=== PATIENT | male | born 1955 | race Two or more races ===

== ENCOUNTER → 2016-06-02 | Outpatient (CLI) | payer OTHER ==
[2016-06-02 10:27] LABS: ALANINE AMINOTRANSFERASE 121 U/L (21-72); ALBUMIN 4.7 g/dL (3.5-5.0); ALKALINE PHOSPHATASE 150 U/L (38-126); ASPARTATE AMINO TRANSFERASE 55 U/L (17-59); Direct HDL 44 mg/dL (>40); TOTAL PROTEIN 6.7 g/dL (6.3-8.2); TRIGLYCERIDES 183 mg/dL (<150)
[2016-06-02 10:37] LABS: DIRECT LDL 110 mg/dL (<100)
[2016-06-02 10:42] LABS: VLDL CHOLESTEROL 36.6 mg/dL (10-31)
== END ==
LOC: OD 08:36
PROVIDERS: ATTEND Internal Medicine Cardiovascular Disease
DX: R94.5 Abnormal results of liver function studies (principal)
CPT/HCPCS: 36415; 80061; 80076

== ENCOUNTER → 2016-07-29 | Outpatient (CLI) | payer OTHER ==
[2016-07-29 09:09] LABS: ALANINE AMINOTRANSFERASE 118 U/L (21-72); ALBUMIN 4.2 g/dL (3.5-5.0); ALKALINE PHOSPHATASE 130 U/L (38-126); ASPARTATE AMINO TRANSFERASE 60 U/L (17-59); BILIRUBIN,TOTAL 0.7 mg/dL (0.2-1.3); CHOLESTEROL 179.59 mg/dL (0-200); Direct HDL 43 mg/dL (>40); TOTAL PROTEIN 6.7 g/dL (6.3-8.2); TRIGLYCERIDES 207 mg/dL (<150)
[2016-07-29 09:20] LABS: DIRECT LDL 101 mg/dL (<100)
[2016-07-29 09:26] LABS: VLDL CHOLESTEROL 41.4 mg/dL (10-31)
== END ==
LOC: OD 07:34
PROVIDERS: ATTEND Internal Medicine Cardiovascular Disease
DX: E78.2 Mixed hyperlipidemia (principal); R94.5 Abnormal results of liver function studies
CPT/HCPCS: 36415; 80061; 80076; 82977

== ENCOUNTER → 2016-11-24 | Outpatient (CLI) | payer OTHER ==
[2016-11-24 12:18] LABS: ALANINE AMINOTRANSFERASE 100 U/L (21-72); ALBUMIN 4.1 g/dL (3.5-5.0); ALKALINE PHOSPHATASE 139 U/L (38-126); ASPARTATE AMINO TRANSFERASE 60 U/L (17-59); BILIRUBIN,DIRECT 0.3 mg/dL (0.0-0.4); BILIRUBIN,TOTAL 0.9 mg/dL (0.2-1.3); CHOLESTEROL 218.84 mg/dL (0-200); Direct HDL 44 mg/dL (>40); TRIGLYCERIDES 221 mg/dL (<150)
[2016-11-24 12:29] LABS: DIRECT LDL 142 mg/dL (<100)
[2016-11-24 12:36] LABS: VLDL CHOLESTEROL 44.2 mg/dL (10-31)
== END ==
LOC: OD 11:19
PROVIDERS: ATTEND Internal Medicine Cardiovascular Disease
DX: E78.2 Mixed hyperlipidemia (principal); R94.5 Abnormal results of liver function studies
CPT/HCPCS: 36415; 80061; 80076; 82977

== ENCOUNTER → 2017-04-18 | Outpatient (CLI) | payer OTHER ==
[2017-04-18 14:16] LABS: ALANINE AMINOTRANSFERASE 78 U/L (21-72); ALBUMIN 4.6 g/dL (3.5-5.0); ALKALINE PHOSPHATASE 120 U/L (38-126); ANION GAP 16 (5-19); ASPARTATE AMINO TRANSFERASE 47 U/L (17-59); BILIRUBIN,DIRECT 0.4 mg/dL (0.0-0.4); BILIRUBIN,TOTAL 0.8 mg/dL (0.2-1.3); BLOOD UREA NITROGEN 9 mg/dL (7-20); CALCIUM 9.5 mg/dL (8.4-10.2); CARBON DIOXIDE 25 mmol/L (22-30); CHLORIDE 99 mmol/L (98-107); CHOLESTEROL 110.67 mg/dL (0-200); Direct HDL 52 mg/dL (>40); GLUCOSE 77 mg/dL (75-110); POTASSIUM 4.2 mmol/L (3.6-5.0); SODIUM 139.7 mmol/L (137-145); TOTAL PROTEIN 7.2 g/dL (6.3-8.2); TRIGLYCERIDES 221 mg/dL (<150)
[2017-04-18 14:27] LABS: DIRECT LDL 35 mg/dL (<100)
[2017-04-18 14:32] LABS: VLDL CHOLESTEROL 44.2 mg/dL (10-31)
== END ==
LOC: OD 11:33
PROVIDERS: ATTEND Internal Medicine Cardiovascular Disease
DX: E78.2 Mixed hyperlipidemia (principal); R94.5 Abnormal results of liver function studies; I25.10 Atherosclerotic heart disease of native coronary artery without angina pectoris
CPT/HCPCS: 36415; 80048; 80061; 80076; 82977

== ENCOUNTER → 2018-01-11 | Outpatient (CLI) | payer MEDICARE ==
[2018-01-11 15:31] LABS: ALANINE AMINOTRANSFERASE 49 U/L (21-72); ALBUMIN 4.2 g/dL (3.5-5.0); ALKALINE PHOSPHATASE 105 U/L (38-126); ANION GAP 14 (5-19); ASPARTATE AMINO TRANSFERASE 33 U/L (17-59); BILIRUBIN,DIRECT 0.3 mg/dL (0.0-0.4); BILIRUBIN,TOTAL 1.2 mg/dL (0.2-1.3); BLOOD UREA NITROGEN 14 mg/dL (7-20); CALCIUM 9.7 mg/dL (8.4-10.2); CARBON DIOXIDE 25 mmol/L (22-30); CHLORIDE 102 mmol/L (98-107); CHOLESTEROL 185.56 mg/dL (0-200); GLUCOSE 84 mg/dL (75-110); POTASSIUM 4.3 mmol/L (3.6-5.0); SODIUM 141.1 mmol/L (137-145); TOTAL PROTEIN 7.1 g/dL (6.3-8.2); TRIGLYCERIDES 238 mg/dL (<150)
[2018-01-11 15:44] LABS: DIRECT LDL 106 mg/dL (<100)
[2018-01-11 15:45] LABS: VLDL CHOLESTEROL 47.6 mg/dL (10-31)
== END ==
LOC: OD 14:26
PROVIDERS: ATTEND Internal Medicine Cardiovascular Disease
DX: I25.10 Atherosclerotic heart disease of native coronary artery without angina pectoris (principal); R94.5 Abnormal results of liver function studies; E78.2 Mixed hyperlipidemia
CPT/HCPCS: 36415; 80048; 80061; 80076

== ENCOUNTER → 2018-04-07 | Outpatient (CLI) | payer MEDICARE, OTHER ==
[2018-04-07 09:57] LABS: ALANINE AMINOTRANSFERASE 67 U/L (21-72); ALBUMIN 4.2 g/dL (3.5-5.0); ALKALINE PHOSPHATASE 127 U/L (38-126); ASPARTATE AMINO TRANSFERASE 37 U/L (17-59); BILIRUBIN,DIRECT 0.3 mg/dL (0.0-0.4); BILIRUBIN,TOTAL 0.9 mg/dL (0.2-1.3); CHOLESTEROL 97.69 mg/dL (0-200); GAMMA-GLUTAMYL TRANSFERASE 448 U/L (8-78); TOTAL PROTEIN 6.9 g/dL (6.3-8.2); TRIGLYCERIDES 181 mg/dL (<150)
[2018-04-07 10:08] LABS: DIRECT LDL 51 mg/dL (<100)
[2018-04-07 10:15] LABS: VLDL CHOLESTEROL 36.2 mg/dL (10-31)
== END ==
LOC: OD 08:12
PROVIDERS: ATTEND Internal Medicine Cardiovascular Disease
DX: E78.2 Mixed hyperlipidemia (principal); I25.10 Atherosclerotic heart disease of native coronary artery without angina pectoris; R94.5 Abnormal results of liver function studies; Z79.899 Other long term (current) drug therapy
CPT/HCPCS: 36415; 80061; 80076; 82977

== ENCOUNTER → 2018-07-09 | Outpatient (CLI) | payer MEDICARE, OTHER ==
[2018-07-09 17:36] LABS: HEMATOCRIT 49.8 % (37.9-51.0); HEMOGLOBIN 17.8 g/dL (13.5-17.0); MEAN CORPUSCULAR HEMOGLOBIN 30.1 pg (27.0-33.4); MEAN CORPUSCULAR HGB CONC 35.7 g/dL (32.0-36.0); MEAN CORPUSCULAR VOLUME 84 fl (80-97); PLATELET COUNT 260 10^3/uL (150-450); RED BLOOD COUNT 5.91 10^6/uL (4.35-5.55); RED CELL DISTRIBUTION WIDTH 14.4 % (11.5-14.0); WHITE BLOOD COUNT 7.2 10^3/uL (4.0-10.5)
[2018-07-09 17:57] LABS: ALANINE AMINOTRANSFERASE 65 U/L (21-72); ALBUMIN 4.5 g/dL (3.5-5.0); ALKALINE PHOSPHATASE 130 U/L (38-126); ANION GAP 8 (5-19); ASPARTATE AMINO TRANSFERASE 40 U/L (17-59); BILIRUBIN,DIRECT 0.1 mg/dL (0.0-0.4); BILIRUBIN,TOTAL 0.7 mg/dL (0.2-1.3); BLOOD UREA NITROGEN 13 mg/dL (7-20); CALCIUM 9.8 mg/dL (8.4-10.2); CARBON DIOXIDE 31 mmol/L (22-30); CHLORIDE 102 mmol/L (98-107); CHOLESTEROL 105.89 mg/dL (0-200); GAMMA-GLUTAMYL TRANSFERASE 481 U/L (8-78); GLUCOSE 85 mg/dL (75-110); POTASSIUM 4.7 mmol/L (3.6-5.0); SODIUM 141.3 mmol/L (137-145); TOTAL PROTEIN 6.6 g/dL (6.3-8.2); TRIGLYCERIDES 170 mg/dL (<150)
[2018-07-09 18:08] LABS: DIRECT LDL 52 mg/dL (<100)
== END ==
LOC: OD 16:54
PROVIDERS: ATTEND Internal Medicine Cardiovascular Disease
DX: E78.2 Mixed hyperlipidemia (principal); R94.5 Abnormal results of liver function studies; Z79.899 Other long term (current) drug therapy
CPT/HCPCS: 36415; 80048; 80061; 80076; 82977; 85027

== ENCOUNTER → 2018-08-01 | Outpatient (CLI) | payer MEDICARE, OTHER ==
--- NOTE | 2018-08-01 09:13 | RADIOLOGY REPORT (SQ) ---
EXAM DESCRIPTION: U/S ABDOMEN LIMITED W/O DOP COMPLETED DATE/TIME: 08/01/2018 8:59 am REASON FOR STUDY: ABN LFT'S (R79.89) R79.89 OTHER SPECIFIED ABNORMAL FINDINGS OF BLOOD CHEMISTRY COMPARISON: None. TECHNIQUE: Dynamic and static grayscale images acquired of the abdomen and recorded on PACS. Additio nal selected color Doppler and spectral images recorded. LIMITATIONS: None. FINDINGS: PANCREAS: Limited visualization LIVER: Normal size. 13.1 cm. Normal echotexture. No masses. LIVER VASCULATURE: Normal directional flow of the main portal vein and hepatic veins. GALLBLADDER: No stones. Normal wall thickness. No pericholecystic fluid. ULTRASOUND-DETECTED RAM'S SIGN: Negative. INTRAHEPATIC DUCTS AND COMMON DUCT: CBD and intrahepatic ducts normal caliber. No filling defects. INFERIOR VENA CAVA: Normal flow. AORTA: No aneurysm. RIGHT KIDNEY: Normal size. Normal echogenicity. No solid or suspicious masses. No hydronephrosis. No calcifications. PERITONEAL AND RIGHT PLEURAL SPACE: No ascites or effusions. OTHER: No other significant findings. IMPRESSION: NORMAL RIGHT UPPER QUADRANT ULTRASOUND. TECHNICAL DOCUMENTATION: JOB ID: [id number]- All Rights Reserved Reading location - IP/workstation name: [email or web address]
== END ==
LOC: RAD 07:30
PROVIDERS: ATTEND Internal Medicine Gastroenterology
DX: R79.89 Other specified abnormal findings of blood chemistry (principal)
CPT/HCPCS: 76705

== ENCOUNTER → 2018-10-05 | Outpatient (CLI) | payer MEDICARE, OTHER ==
[2018-10-05 17:36] LABS: ALANINE AMINOTRANSFERASE 96 U/L (21-72); ALBUMIN 4.1 g/dL (3.5-5.0); ALKALINE PHOSPHATASE 150 U/L (38-126); ANION GAP 8 (5-19); ASPARTATE AMINO TRANSFERASE 50 U/L (17-59); BILIRUBIN,DIRECT 0.3 mg/dL (0.0-0.4); BILIRUBIN,TOTAL 0.5 mg/dL (0.2-1.3); BLOOD UREA NITROGEN 16 mg/dL (7-20); CALCIUM 9.6 mg/dL (8.4-10.2); CARBON DIOXIDE 29 mmol/L (22-30); CHLORIDE 103 mmol/L (98-107); CHOLESTEROL 218.83 mg/dL (0-200); GLUCOSE 87 mg/dL (75-110); POTASSIUM 4.2 mmol/L (3.6-5.0); SODIUM 139.9 mmol/L (137-145); TOTAL PROTEIN 6.7 g/dL (6.3-8.2); TRIGLYCERIDES 233 mg/dL (<150)
[2018-10-05 17:47] LABS: DIRECT LDL 146 mg/dL (<100)
[2018-10-05 17:51] LABS: VLDL CHOLESTEROL 46.6 mg/dL (10-31)
[2018-10-08 14:42] LABS: LYME DISEASE IGM AB <0.80 index (0.00-0.79)
== END ==
LOC: LAB 16:51
PROVIDERS: ATTEND Internal Medicine Cardiovascular Disease
DX: G51.0 Bell's palsy (principal); E78.2 Mixed hyperlipidemia; R94.5 Abnormal results of liver function studies; Z79.899 Other long term (current) drug therapy
CPT/HCPCS: 36415; 80048; 80061; 80076; 86617; 86618

== ENCOUNTER → 2018-12-07 | Outpatient (CLI) | payer MEDICARE, OTHER ==
[2018-12-07 15:03] LABS: ALANINE AMINOTRANSFERASE 84 U/L (21-72); ALBUMIN 4.2 g/dL (3.5-5.0); ALKALINE PHOSPHATASE 130 U/L (38-126); ASPARTATE AMINO TRANSFERASE 48 U/L (17-59); BILIRUBIN,DIRECT 0.2 mg/dL (0.0-0.4); BILIRUBIN,TOTAL 0.9 mg/dL (0.2-1.3); CHOLESTEROL 208.82 mg/dL (0-200); TOTAL PROTEIN 6.6 g/dL (6.3-8.2); TRIGLYCERIDES 151 mg/dL (<150)
[2018-12-07 15:14] LABS: DIRECT LDL 138 mg/dL (<100)
[2018-12-07 15:17] LABS: VLDL CHOLESTEROL 30.2 mg/dL (10-31)
== END ==
LOC: LAB 14:28
PROVIDERS: ATTEND Physician Assistant
DX: E78.2 Mixed hyperlipidemia (principal); R94.5 Abnormal results of liver function studies; Z79.899 Other long term (current) drug therapy
CPT/HCPCS: 36415; 80061; 80076

== ENCOUNTER → 2019-12-13 | Outpatient (CLI) | payer MEDICARE, OTHER ==
[2019-12-13 09:46] LABS: ALBUMIN 4.4 g/dL (3.5-5.0); ALKALINE PHOSPHATASE 139 U/L (38-126); ANION GAP 8 (5-19); ASPARTATE AMINO TRANSFERASE 40 U/L (17-59); BILIRUBIN,DIRECT 0.2 mg/dL (0.0-0.4); BILIRUBIN,TOTAL 1.3 mg/dL (0.2-1.3); BLOOD UREA NITROGEN 11 mg/dL (7-20); CALCIUM 9.8 mg/dL (8.4-10.2); CARBON DIOXIDE 28 mmol/L (22-30); CHLORIDE 102 mmol/L (98-107); CHOLESTEROL 196.94 mg/dL (0-200); GLUCOSE 118 mg/dL (75-110); TOTAL PROTEIN 7.3 g/dL (6.3-8.2); TRIGLYCERIDES 309 mg/dL (<150)
[2019-12-13 09:57] LABS: DIRECT LDL 123 mg/dL (<100)
[2019-12-13 10:02] LABS: VLDL CHOLESTEROL 61.8 mg/dL (10-31)
== END ==
LOC: OD 08:48
PROVIDERS: ATTEND Physician Assistant
DX: I25.10 Atherosclerotic heart disease of native coronary artery without angina pectoris (principal); E78.2 Mixed hyperlipidemia; R94.5 Abnormal results of liver function studies; Z79.899 Other long term (current) drug therapy
CPT/HCPCS: 36415; 80048; 80061; 80076

== ENCOUNTER → 2020-03-26 | Outpatient (CLI) | payer MEDICARE, OTHER ==
[2020-03-26 10:40] LABS: ALBUMIN 4.3 g/dL (3.5-5.0); ALKALINE PHOSPHATASE 164 U/L (38-126); ASPARTATE AMINO TRANSFERASE 38 U/L (17-59); BILIRUBIN,DIRECT 0.1 mg/dL (0.0-0.4); BILIRUBIN,TOTAL 0.8 mg/dL (0.2-1.3); CHOLESTEROL 110.55 mg/dL (0-200); TOTAL PROTEIN 6.9 g/dL (6.3-8.2); TRIGLYCERIDES 292 mg/dL (<150)
[2020-03-26 10:51] LABS: DIRECT LDL 38 mg/dL (<100)
[2020-03-26 10:54] LABS: VLDL CHOLESTEROL 58.4 mg/dL (10-31)
== END ==
LOC: OD 08:52
PROVIDERS: ATTEND Internal Medicine Cardiovascular Disease
DX: E78.2 Mixed hyperlipidemia (principal); Z79.899 Other long term (current) drug therapy
CPT/HCPCS: 36415; 80061; 80076

== ENCOUNTER → 2020-06-20 | Outpatient (CLI) | payer MEDICARE, OTHER ==
[2020-06-20 10:38] LABS: ALBUMIN 4.2 g/dL (3.5-5.0); ALKALINE PHOSPHATASE 148 U/L (38-126); ANION GAP 7 (5-19); ASPARTATE AMINO TRANSFERASE 38 U/L (17-59); BILIRUBIN,DIRECT 0.2 mg/dL (0.0-0.4); BILIRUBIN,TOTAL 0.8 mg/dL (0.2-1.3); BLOOD UREA NITROGEN 13 mg/dL (7-20); CALCIUM 9.6 mg/dL (8.4-10.2); CARBON DIOXIDE 29 mmol/L (22-30); CHLORIDE 102 mmol/L (98-107); CHOLESTEROL 123.71 mg/dL (0-200); GLUCOSE 108 mg/dL (75-110); POTASSIUM 4.5 mmol/L (3.6-5.0); TOTAL PROTEIN 6.7 g/dL (6.3-8.2); TRIGLYCERIDES 336 mg/dL (<150)
[2020-06-20 10:49] LABS: DIRECT LDL 48 mg/dL (<100)
[2020-06-20 10:52] LABS: VLDL CHOLESTEROL 67.2 mg/dL (10-31)
== END ==
LOC: OD 09:00
PROVIDERS: ATTEND Physician Assistant
DX: E78.2 Mixed hyperlipidemia (principal); R94.5 Abnormal results of liver function studies; R73.01 Impaired fasting glucose; Z79.899 Other long term (current) drug therapy
CPT/HCPCS: 36415; 80048; 80061; 80076